=== PATIENT | female | born 1970 | race Caucasian/White ===

== ENCOUNTER 2020-08-14 18:42 | Inpatient (IN) | payer MEDICAID, OTHER ==
[~2020-08-14] VITALS: Ht 157.5 cm; Wt 122.3 kg
[2020-08-14] MEDS ORDERED: ACETAMINOPHEN 325 MG TAB PO ONE (19:15)
[2020-08-14] MEDS ORDERED: CEFEPIME 2 GM in SODIUM CHL 0.9% 50 ML IV ONE (19:45)
[2020-08-14] MEDS ORDERED: AZITHROMYCIN 500MG/ 250ML 250 ML IV ONE (19:45)
[2020-08-14] MEDS ORDERED: SODIUM CHLORIDE 0.9% 3,400 ML IV ONE (19:45)
[2020-08-14 21:19] LABS: Basophils # (auto) 0.2 10 ^3/uL (0-0.2); Basophils % (auto) 0.9 % (0.0-2.0); Eosinophils # (auto) 0 10 ^3/uL (0-0.8); Hemoglobin 14.3 g/dL (12.2-16.2); Lymphocytes # (auto) 1.3 10 ^3/uL (0.4-5.4); Lymphocytes % (auto) 7.4 % (10.0-50.0); Mean Corpuscular Hemoglobin 29.2 pg (28.0-32.0); Mean Corpuscular Hgb Conc. 34.1 g/dL (32.0-36.0); Mean Corpuscular Volume 85.8 fL (80.0-100.0); Monocytes # (auto) 1.9 10 ^3/uL (0-1.3); Monocytes % (auto) 11.2 % (0.0-12.0); Neutrophils # (auto) 13.8 10 ^3/uL (1.6-8.6); Neutrophils % (auto) 80.5 % (37.0-80.0); Nucleated Red Blood Cells % 0.1 %; Platelet Count (auto) 287 10^3/uL (140-450); Red Blood Cells 4.89 10^6/uL (4.0-5.20); Red Cell Distribution Width 13.7 % (11.8-14.3); White Blood Cell 17.1 10^3/uL (4.4-10.8)
[2020-08-14 21:33] LABS: INR 1.08 (0.9-1.15); Partial Thromboplastin Time 27.6 sec (23.0-31.2)
[2020-08-14 21:36] LABS: Albumin 2.7 g/dL (3.4-5.0); Anion Gap 9 (5-15); Blood Urea Nitrogen 10 mg/dL (7-18); Calcium 8.2 mg/dL (8.5-10.1); Carbon Dioxide 24 mmol/L (21-32); Chloride 98 mmol/L (98-107); Glucose 114 mg/dL (74-106); Magnesium 1.8 mg/dL (1.6-2.6); Potassium 3.5 mmol/L (3.5-5.1); Sodium 131 mmol/L (136-145)
[2020-08-14 21:43] LABS: Alanine Aminotransferase 90 U/L (13-56); Alkaline Phosphatase 109 U/L (45-117); Aspartate Aminotransferase 39 U/L (15-37); BUN/Creatinine Ratio 9.8; Bilirubin, Total 0.7 mg/dL (0.2-1.0); GFR African American 74 mL/min; GFR Non-African American 61 mL/min; Total Protein 7.3 g/dL (6.4-8.2)
[2020-08-15] MEDS ORDERED: MORPHINE SULFATE 10 MG/ML INJ 1ML SDV IV ONE
[2020-08-15] MEDS ORDERED: ONDANSETRON HCL 4 MG/2 ML VIAL IV ONE
[2020-08-15] MEDS ORDERED: MORPHINE SULFATE 4 MG/ML SYR/VIAL ONE (00:01)
[2020-08-15] MEDS ORDERED: VANCOMYCIN 1GM/250ML 250 ML IV ONE (02:00)
[2020-08-15] MEDS ORDERED: PROMETHAZINE HCL 25 MG/ML 1ML IV PRN (02:00)
[2020-08-15] MEDS ORDERED: SODIUM CHLORIDE 0.9% 5,000 ML IV ONE (02:00)
[2020-08-15 06:53] LABS: Basophils # (auto) 0 10 ^3/uL (0-0.2); Basophils % (auto) 0.2 % (0.0-2.0); Eosinophils # (auto) 0 10 ^3/uL (0-0.8); Hematocrit 41.3 % (36.0-46.0); Lymphocytes # (auto) 1.3 10 ^3/uL (0.4-5.4); Lymphocytes % (auto) 7.2 % (10.0-50.0); Mean Corpuscular Hemoglobin 29.5 pg (28.0-32.0); Mean Corpuscular Hgb Conc. 33.8 g/dL (32.0-36.0); Mean Corpuscular Volume 87.3 fL (80.0-100.0); Monocytes # (auto) 2.5 10 ^3/uL (0-1.3); Monocytes % (auto) 14.2 % (0.0-12.0); Neutrophils # (auto) 13.9 10 ^3/uL (1.6-8.6); Neutrophils % (auto) 78.4 % (37.0-80.0); Platelet Count (auto) 278 10^3/uL (140-450); Red Blood Cells 4.73 10^6/uL (4.0-5.20); Red Cell Distribution Width 13.8 % (11.8-14.3); White Blood Cell 17.7 10^3/uL (4.4-10.8)
[2020-08-15] MEDS: ALBUTEROL SULF HFA 90MCG INH 200DOSE IN SCH ×3 (07:20→22:00)
[2020-08-15 07:32] LABS: BUN/Creatinine Ratio 11.7; Calcium 7.6 mg/dL (8.5-10.1); Potassium 3.7 mmol/L (3.5-5.1)
[2020-08-15] MEDS ORDERED: levoFLOXacin 500MG 100 ML IV SCH (10:00)
[2020-08-15] MEDS ORDERED: IPRATROPIUM BROM 0.5 MG/2.5ML INH SOL NEB ONE (10:00)
[2020-08-15] MEDS ORDERED: ALBUTEROL SULF 2.5 MG/0.5ML(0.5%) NEB SOLN NEB ONE (10:00)
[2020-08-15] MEDS: HYDROcodone-ACET 5/325MG TAB PO PRN (10:36)
[2020-08-15] MEDS ORDERED: VANCOMYCIN PER PHARMACY 0 MG IV SCH (13:00)
[2020-08-15] MEDS ORDERED: IBUPROFEN 600 MG TAB PO PRN (14:15)
[2020-08-15] MEDS ORDERED: SODIUM CHLORIDE 0.9% 500 ML IV ONE (14:15)
[2020-08-15] MEDS: ACETAMINOPHEN 325 MG TAB PO PRN (14:29)
[2020-08-15] MEDS ORDERED: REMDESIVIR PER PHARMACY 0 ML IV SCH (14:30)
[2020-08-15] MEDS ORDERED: POTA10TA51 PO (15:34)
[2020-08-15] MEDS ORDERED: FURO20TA3 PO (15:34)
[2020-08-15] MEDS ORDERED: SULF500T2 PO (15:34)
[2020-08-15] MEDS ORDERED: LISI-646 PO (15:34)
[2020-08-15] MEDS ORDERED: ADAL40IN SC (15:34)
[2020-08-15] MEDS ORDERED: HYDR-4188 PO (15:34)
[2020-08-15] MEDS ORDERED: CHOL20007 PO (15:34)
[2020-08-15] MEDS: VANCOMYCIN 1GM/250ML 250 ML IV SCH (16:04)
[2020-08-15] MEDS: DexAMETHasone SOD PHOS 10MG/1ML VIAL INJ IV SCH (16:13)
[2020-08-15] MEDS: ASCORBIC ACID 500 MG TAB PO SCH (16:14)
[2020-08-15] MEDS: CHOLECALCIFEROL (VITD3) 2,000 UNIT CAP PO SCH (16:14)
[2020-08-15] MEDS: ZINC SULFATE 220mg CAP or TAB PO SCH (16:14)
[2020-08-15] MEDS ORDERED: REMDESIVIR 200 MG in NS 210ml LOADING DOSE ADULT IV ONE (17:00)
[2020-08-15] MEDS: PIPERACILLIN-TAZOB 3.375GM 100 ML IV SCH (18:42)
[2020-08-15] MEDS ORDERED: MORPHINE SULF INJ 2 MG/ML SYRINGE 1ML IV PRN (21:00)
[2020-08-16] MEDS: PIPERACILLIN-TAZOB 3.375GM 100 ML IV SCH ×5 (00:01→23:29)
[2020-08-16] MEDS: HYDROcodone-ACET 5/325MG TAB PO PRN (00:17)
[2020-08-16] MEDS: VANCOMYCIN 1GM/250ML 250 ML IV SCH ×2 (02:58→15:49)
[2020-08-16] MEDS: ACETAMINOPHEN 325 MG TAB PO PRN (04:32)
[2020-08-16] MEDS: ALBUTEROL SULF HFA 90MCG INH 200DOSE IN SCH ×2 (06:00→22:00)
[2020-08-16 06:26] VITALS: BP 101/60
[2020-08-16 08:00] VITALS: BP 100/54
[2020-08-16] MEDS: ZINC SULFATE 220mg CAP or TAB PO SCH (09:37)
[2020-08-16] MEDS: CHOLECALCIFEROL (VITD3) 2,000 UNIT CAP PO SCH (09:37)
[2020-08-16] MEDS: ASCORBIC ACID 500 MG TAB PO SCH (09:38)
[2020-08-16] MEDS: DexAMETHasone SOD PHOS 10MG/1ML VIAL INJ IV SCH (09:38)
[2020-08-16 10:55] LABS: Albumin 2.4 g/dL (3.4-5.0); Anion Gap 7 (5-15); Blood Urea Nitrogen 19 mg/dL (7-18); Calcium 8.1 mg/dL (8.5-10.1); Carbon Dioxide 27 mmol/L (21-32); Chloride 98 mmol/L (98-107); Glucose 100 mg/dL (74-106); Potassium 3.4 mmol/L (3.5-5.1); Sodium 132 mmol/L (136-145)
[2020-08-16 11:04] LABS: Alanine Aminotransferase 58 U/L (13-56); Alkaline Phosphatase 118 U/L (45-117); Aspartate Aminotransferase 24 U/L (15-37); BUN/Creatinine Ratio 20.9; Bilirubin, Total 0.6 mg/dL (0.2-1.0); GFR African American 84 mL/min; GFR Non-African American 70 mL/min; Lactate Dehydrogenase 267 U/L (84-246); Total Protein 7.3 g/dL (6.4-8.2)
[2020-08-16 11:06] LABS: CRP High Sensitivity > 19 mg/dL (< 0.3)
[2020-08-16] MEDS ORDERED: REMDESIVIR 100mg 100 MG in SODIUM CHL 0.9% 230 ML IV SCH (15:00)
[2020-08-16 16:00] VITALS: BP 110/70
[2020-08-17] VITALS: BP 114/66
[2020-08-17] MEDS ORDERED: VANCOMYCIN 1GM/250ML 250 ML IV SCH (01:00)
[2020-08-17] MEDS: VANCOMYCIN 1GM/250ML 250 ML IV SCH ×2 (03:11→15:30)
[2020-08-17] MEDS: HYDROcodone-ACET 5/325MG TAB PO PRN (03:15)
[2020-08-17] MEDS: PIPERACILLIN-TAZOB 3.375GM 100 ML IV SCH ×2 (06:14→12:55)
[2020-08-17 08:00] VITALS: BP 82/37
[2020-08-17 08:16] LABS: Potassium 3.9 mmol/L (3.5-5.1)
[2020-08-17 08:25] LABS: Albumin 2.5 g/dL (3.4-5.0); BUN/Creatinine Ratio 22.2; Bilirubin, Total 0.4 mg/dL (0.2-1.0); Calcium 8.6 mg/dL (8.5-10.1)
[2020-08-17] MEDS: ASCORBIC ACID 500 MG TAB PO SCH (10:12)
[2020-08-17] MEDS: CHOLECALCIFEROL (VITD3) 2,000 UNIT CAP PO SCH (10:12)
[2020-08-17] MEDS: DexAMETHasone SOD PHOS 10MG/1ML VIAL INJ IV SCH (10:12)
[2020-08-17] MEDS: ZINC SULFATE 220mg CAP or TAB PO SCH (10:12)
[2020-08-17] MEDS: ACETAMINOPHEN 325 MG TAB PO PRN (10:20)
[2020-08-17] MEDS: ALBUTEROL SULF HFA 90MCG INH 200DOSE IN SCH (10:42)
[2020-08-17] MEDS ORDERED: ENOXAPARIN SOD 40 MG/0.4 ML SYRINGE SC SCH (11:00)
[2020-08-17 16:00] VITALS: BP 115/69
[2020-08-18] MEDS ORDERED: VANCOMYCIN 1GM/250ML 250 ML IV SCH (01:00)
== END 2020-08-17 18:10 | disposition left against medical advice (07) | DRG 720 ==
LOC: ER 18:42 → EDBD 18:42 → OVERFLOW 18:43 → EAST 08-16 05:44
PROVIDERS: ADMIT Internal Medicine; ATTEND Internal Medicine
PROC: XW033E5 Introduction of Remdesivir Anti-infective into Peripheral Vein, Percutaneous Approach, New Technology Group 5 (ICD-10-PCS; principal; 2020-08-15)
DX: A41.89 Other specified sepsis (principal); U07.1 COVID-19; J96.01 Acute respiratory failure with hypoxia; J12.82 Pneumonia due to coronavirus disease 2019; J45.41 Moderate persistent asthma with (acute) exacerbation; E66.01 Morbid (severe) obesity due to excess calories; E87.1 Hypo-osmolality and hyponatremia; T63.301A Toxic effect of unspecified spider venom, accidental (unintentional), initial encounter; L02.31 Cutaneous abscess of buttock; L03.317 Cellulitis of buttock; Z68.42 Body mass index [BMI] 45.0-49.9, adult; Z79.899 Other long term (current) drug therapy; Z79.891 Long term (current) use of opiate analgesic; Z79.01 Long term (current) use of anticoagulants
CPT/HCPCS: 36415; 71045; 80048; 80053; 80202; 82728; 83605; 83615; 83735; 83880; 84484; 85025; 85379; 85610; 85730; 86141; 87040; 87077; 87186; 87205; 87426; 93005; 93970; 94640; 96365; 96367; G0378; J1100; J1956; J2405; J2543

== ENCOUNTER 2024-08-19 16:35 | Inpatient (IN) | payer MEDICAID ==
[~2024-08-19] VITALS: Ht 160 cm; Wt 104.5 kg
[~2024-08-19 16:35] MED LIST: ADAL40IN SC; CHOL20007 PO; FURO20TA3 PO; HYDR-4491 PO; LISI20TA56 PO; POTA-36 PO; SULF500T2 PO
[2024-08-19 16:54] VITALS: PULSE 101; RESP 16; O2SAT 96
[2024-08-19] MEDS ORDERED: VANCOMYCIN PER PHARMACY 0 MG IV SCH (17:00)
[2024-08-19] MEDS: LACTATED RINGER'S 1,550 ML IV ONE (17:00)
[2024-08-19] MEDS: SODIUM CHLORIDE 0.9% 1,550 ML IV ONE ×2 (17:20→19:23)
--- NOTE | 2024-08-19 17:31 | ED.PDOC ---
History of Present Illness HPI Comments 53 y/o F is BIBA for c/o left leg redness, swelling, pain, and multiple ulcer wounds, today. Patient endorses on unprovoked onset of symptoms that began, yesterday. She comments on additional single ulcer wound to 4th digit on left hand. Patient denies having any additional associated symptoms, currently, such as fever or chills. Chief Complaint: Lower Extremity Time Seen by MD: 17:00 Reviewed Notes: Nurses Notes, Ceo Notes, Medications, Allergies Allergies: Coded Allergies: Codeine (Verified Allergy, Unknown, 08/19/24) Home Meds Active Scripts Cholecalciferol (VITAMIN D3) 2,000 Unit Tab, 1 TAB PO DAILY, #90 TAB 3 Refills Prov:08/15/20 Lisinopril (Lisinopril) 20 Mg Tab, 20 MG PO DAILY for 30 Days, MG Prov:08/15/20 Hydroxychloroquine Sulfate (PLAQUENIL) 200 Mg Tab, 400 MG PO DAILY for 90 Days, #180 TAB Prov:08/15/20 Adalimumab (Humira) 40 Mg/0.4 Ml Inj, 40 MG SC UD for 28 Days, INJ Prov:08/15/20 Sulfasalazine (Azulfidine) 500 Mg Tab, 1000 MG PO BID for 90 Days, #360 TAB Prov:08/15/20 Potassium Chloride (POTASSIUM CHLORIDE CR) 10 Meq Tb, 1 TAB PO DAILY, #30 TAB 5 Refills Prov:08/15/20 Furosemide (Furosemide) 20 Mg Tab, 20 MG PO DAILY for 30 Days, MG Prov:08/15/20 Information Source: Patient, Emergency Med Personnel Mode of Arrival: EMS Severity: Moderate Timing: Hours Duration: Since onset Prehospital treatment: 12 Lead EKG, Senior Technologist Past Medical History PAST MEDICAL HISTORY: Asthma Past Medical History (Other): obesity Surgical History: Denies all surgeries ASSISTIVE TECHNOLOGY SPECIALIST History: No Pertinent ASSISTIVE TECHNOLOGY SPECIALIST History Family History Family History: Reviewed,noncontributory to illness Social History Smoker: Non-Smoker Alcohol: Denies ETOH Use Drugs: Denies Drug Use Lives In: Home Musculoskeletal: reports: others (left leg swelling, pain) Integumetry: reports: change in color (left leg redness ), wounds (left leg and left hand ulcer wounds ) All Other Systems: Reviewed and Negative (negative unless otherwise stated above or in HPI) Physical Exam General Appearance: No Apparent Distress, Obese HEENT: Normal ENT Inspection, Pharynx Normal, TMs Normal Neck: Full Range of Motion, Non-Tender, Normal, Normal Inspection Respiratory: Chest Non-Tender, Lungs Clear, No Accessory Muscle Use, No Respiratory Distress, Other (tachypneic) Cardiovascular: No Edema, No JVD, No Murmur, No Gallop, Normal Peripheral Pulses, Tachycardia Breast Exam: Deferred Gastrointestinal: No Organomegaly, Non Tender, No Pulsatile Mass, Normal Bowel Sounds, Soft Genitalia: Deferred Pelvic: Deferred Rectal: Deferred Extremities: No calf tenderness, Normal capillary refill, Normal inspection, Normal range of motion, Non-tender, No pedal edema Musculoskeletal : Apperance: Normal Neurologic: Alert, dog boarder II-XII nml as Tested, No Motor Deficits, Normal Affect, Normal Mood, No Sensory Deficits Cerebellar Function: Normal Reflexes: Normal Skin: Dry, Normal Color, Warm, Wounds (2x [id number] ulcer wounds to left lower leg and 1x 0.3cmx0.2cm to 4th digit on left hand ), Other (erythema to left leg exends to the base of thigh ) Lymphatic: No Adenopathy Was a procedure done? Was a procedure done?: No Differential Dx Considerations may include: cellulitis, dermatitis, skin contact exposure X-Ray, Labs, Meds, VS Vital Signs Date Time Temp Pulse Resp B/P (MAP) Pulse Ox O2 Delivery O2 Flow Rate FiO2 08/19/24 19:00 85 12 72/42 (52) 96 08/19/24 18:20 85 12 104/51 (68) 08/19/24 16:54 101 16 96 Room Air* 0 21 08/19/24 16:54 101.4 101 16 89/51 (64) 96 101.4 08/19/24 16:41 100.7 102 18 153/94 (113) 99 Lab Test 08/19/24 18:29 08/19/24 17:19 Range/Units Troponin I High Sensitivity Pending 7 </=34 ng/L White Blood Count 22.9 H 4.4-10.8 10^3/uL Red Blood Count 4.61 4.0-5.20 10^6/uL Hemoglobin 13.6 12.2-16.2 g/dL Hematocrit 40.9 36.0-46.0 % Mean Corpuscular Volume 88.8 80.0-100.0 fL Mean Corpuscular Hemoglobin 29.5 28.0-32.0 pg Mean Corpuscular Hemoglobin Concent 33.2 32.0-36.0 g/dL Red Cell Distribution Width 13.9 11.8-14.3 % Platelet Count 250 140-450 10^3/uL Mean Platelet Volume 7.7 6.9-10.8 fL Neutrophils (%) (Auto) 89.4 H 37.0-80.0 % Lymphocytes (%) (Auto) 5.3 L 10.0-50.0 % Monocytes (%) (Auto) 5.1 0.0-12.0 % Eosinophils (%) (Auto) 0.0 0.0-7.0 % Basophils (%) (Auto) 0.2 0.0-2.0 % Neutrophils # (Auto) 20.5 H 1.6-8.6 10 ^3/uL Lymphocytes # (Auto) 1.2 0.4-5.4 10 ^3/uL Monocytes # (Auto) 1.2 0-1.3 10 ^3/uL Eosinophils # (Auto) 0 0-0.8 10 ^3/uL Basophils # (Auto) 0 0-0.2 10 ^3/uL Nucleated Red Blood Cells 0.0 % Prothrombin Time 11.5 9.3-11.8 sec Prothrombin Time INR 1.09 0.9-1.15 Activated Partial Thromboplast Time 37.3 H 24.5-34.5 SEC D-Dimer, Quantitative 1.43 H 0.0-0.49 mg/L FEU Sodium Level 131 L 136-145 mmol/L Potassium Level 3.6 3.5-5.1 mmol/L Chloride Level 98 98-107 mmol/L Carbon Dioxide Level 24 20-31 mmol/L Anion Gap 9 5-15 Blood Urea Nitrogen 17 9-23 mg/dL Creatinine 1.25 H 0.550-1.02 mg/dL Glomerular Filtration Rate Calc 51 >90 mL/min BUN/Creatinine Ratio 13.6 10.0-20.0 Serum Glucose 124 H 74-106 mg/dL Lactic Acid Level 1.6 0.4-2.0 mmol/L Calcium Level 8.9 8.7-10.4 mg/dL Total Bilirubin 0.9 0.2-1.0 mg/dL Aspartate Amino Transferase (AST) 20 13-40 U/L Alanine Aminotransferase (ALT) 25 7-40 U/L Alkaline Phosphatase 134 H 46-116 U/L Total Protein 6.1 5.7-8.2 g/dL Albumin 3.7 3.2-4.8 g/dL Current Medications Medications (Trade) Dose Ordered Sig/Marcel Route Start Time Stop Time Status Last Admin Sodium Chloride 1,550 ml @ 1,550 mls/hr ONCE ONCE IV 08/19/24 17:00 08/19/24 17:59 DC 08/19/24 17:20 Piperacillin Sod/ Tazobactam Sod 100 ml @ 100 mls/hr ONCE ONCE IV 08/19/24 17:30 08/19/24 18:29 DC 08/19/24 18:18 X-Ray, Labs, Meds, VS Comment This 53-year-old female presents to emergency room secondary to left lower extremity swelling erythema edema subjective fevers. She was checked here with the sepsis pathway secondary to lactic acidosis, tachycardia, fever and leukocytosis. She was started on vancomycin, Zosyn IV fluids. She will be admitted Time of 1ST Reevaluation: 17:30 Reevaluation 1ST: Unchanged Patient Education/Counseling: Diagnosis, Treatment Family Education/Counseling: No Family Present Departure 1 Departure Time of Disposition: 19:16 Impression: Primary Impression: Cellulitis Additional Impressions: Thrombophlebitis Sepsis Disposition: 01 HOME / SELF CARE / HOMELESS Condition: Serious Critical Care Note Critical Care Time?: Yes (30 min-critical care time only) Stability Stability form required: No Heart Score Heart Score: Heart Score Response (Comments) Value History N/A 0 EKG N/A 0 Age N/A 0 Risk Factors N/A 0 Troponin N/A 0 Total 0 I personally scribed for PATRICIA PEREZ MD ([email or web address]) on 08/19/24 at 17:31. Electronically submitted by Reji Lazaro ([email or web address]). PATRICIA PEREZ MD Aug 19, 2024 17:31
[2024-08-19 17:39] LABS: Basophils # (auto) 0 10 ^3/uL (0-0.2); Basophils % (auto) 0.2 % (0.0-2.0); Eosinophils # (auto) 0 10 ^3/uL (0-0.8); Hematocrit 40.9 % (36.0-46.0); Hemoglobin 13.6 g/dL (12.2-16.2); Lymphocytes # (auto) 1.2 10 ^3/uL (0.4-5.4); Lymphocytes % (auto) 5.3 % (10.0-50.0); Mean Corpuscular Hemoglobin 29.5 pg (28.0-32.0); Mean Corpuscular Hgb Conc. 33.2 g/dL (32.0-36.0); Mean Corpuscular Volume 88.8 fL (80.0-100.0); Monocytes # (auto) 1.2 10 ^3/uL (0-1.3); Monocytes % (auto) 5.1 % (0.0-12.0); Neutrophils # (auto) 20.5 10 ^3/uL (1.6-8.6); Neutrophils % (auto) 89.4 % (37.0-80.0); Platelet Count (auto) 250 10^3/uL (140-450); Red Blood Cells 4.61 10^6/uL (4.0-5.20); Red Cell Distribution Width 13.9 % (11.8-14.3); White Blood Cell 22.9 10^3/uL (4.4-10.8)
[2024-08-19 17:52] LABS: Alanine Aminotransferase 25 U/L (7-40); Albumin 3.7 g/dL (3.2-4.8); Anion Gap 9 (5-15); Aspartate Aminotransferase 20 U/L (13-40); BUN/Creatinine Ratio 13.6 (10.0-20.0); Bilirubin, Total 0.9 mg/dL (0.2-1.0); Blood Urea Nitrogen 17 mg/dL (9-23); Calcium 8.9 mg/dL (8.7-10.4); Carbon Dioxide 24 mmol/L (20-31); Chloride 98 mmol/L (98-107); Potassium 3.6 mmol/L (3.5-5.1)
[2024-08-19 17:53] LABS: Alkaline Phosphatase 134 U/L (46-116); Glucose 124 mg/dL (74-106); INR 1.09 (0.9-1.15); Partial Thromboplastin Time 37.3 SEC (24.5-34.5); Prothrombin Time 11.5 sec (9.3-11.8); Sodium 131 mmol/L (136-145); Total Protein 6.1 g/dL (5.7-8.2)
[2024-08-19] MEDS ORDERED: PIPERACILLIN-TAZOB 3.375GM 100 ML IV SCH (18:00)
[2024-08-19] MEDS: PIPERACILLIN-TAZO 4.5GM 100 ML IV ONE (18:18)
[2024-08-19] MEDS: NOREPINEPHRINE 8 MG/250ML KIT 250 ML IV SCH (19:15)
--- NOTE | 2024-08-19 19:18 | DVH ---
EXAM: US BILAT LOW EXT ART DUPLEX HISTORY: edema, pain erythema to LLE COMPARISON: None TECHNIQUE: Real-time grayscale and color Doppler images of the bilateral lower extremities were obta ined with spectral waveform analysis. Findings: Arterial peak systolic velocities reported in units of centimeters per second (cm/sec): Right side: Common femoral - 91.2 Profunda - 108.6 Proximal SFA - 116.3 Mid SFA - 114.5 Distal SFA - 109.1 Popliteal - 102.0 Posterior tibial - 107.0 Dorsalis pedis - 109.0 Diffuse multiphasic waveforms. Left side: Common femoral - 116..5 Profunda - 42.0 Proximal SFA - 151.6 Mid SFA - 109.6 Distal SFA - 128.3 Popliteal - 132.4 Posterior tibial - 114.1 Dorsalis pedis - 87.5 Diffuse multiphasic waveforms. IMPRESSION: No evidence of hemodynamically significant stenosis throughout the bilateral lower extremity arterial systems.
[2024-08-19 19:35] VITALS: PULSE 98; RESP 19; O2SAT 98
--- NOTE | 2024-08-19 19:43 | DVHHP2 ---
History of Present Illness Reason for Visit: Sepsis, unspecified organism History of Present Illness The patient is a 53-year-old female morbidly obese with past medical history of asthma presented to [facility] ED for evaluation of left leg swelling. Patient reports symptoms progressively get worse with redness, pain, multiple ulcer wounds, getting worse today that prompted this visit. Patient was seen and evaluated in the ED, laboratory data shows elevated WBC 22.9, platelets 250, sodium 131, potassium 3.6, BUN 17, creatinine 1.25, GFR 51, glucose 124, troponin 7, D-dimer 1.43, blood pressure 72/42 trending up to 123/80, heart rate 102 trending down to 85, temperature 101.4 F trending down to 99.3 F., O2 saturation 96% on oxygen duplex scan lower extremity artery showed no evidence of hemodynamically significant stenosis throughout the bilateral lower extremity arterial systems. Patient was started on IV antibiotic regimen Zosyn, IV Lev ophed on hold, please see medication orders section in the computer. On my assessment, patient denied chest pain, no headache, no dizziness, no abdominal pain, no diarrhea, no nausea, no vomiting, no fever, no chills. Patient was admitted for further evaluation and medical management. Past Medical History Asthma, Morbid obesity Past Surgical History Denies all surgeries Family History Reviewed, noncontributory to the management of this case. Past Social History The patient lives at home, denies smoking, alcohol or illicit drugs abuse. Review of Systems Constitutional: Yes: Fever, Weakness; No: Chills, Sweats, Malaise, Other Eyes: No: Pain, Vision change, Conjunctivae inflammation, Eyelid inflammation, Other, Redness ENT: No: Ear pain, Ear discharge, Nose pain, Nose discharge, Nose congestion, Mouth pain, Mouth swelling, Throat pain, Throat swelling, Other Respiratory: No: Cough, Dry, Shortness of breath, SOB with excertion, Wheezing, Hemoptysis, Pleuritic Pain, Sputum, Wheezing, Other Cardiovascular: No: Chest Pain, Palpitations, Orthopnea, Paroxysmal Noc. Dyspnea, Edema, Lt Headedness, Other Gastrointestinal: No: Nausea, Vomiting, Abdominal Pain, Diarrhea, Constipation, Melena, Hematochezia, Other Genitourinary: No Dysuria, No Frequency, No Incontinence, No Hematuria, No Retention, No Other Musculoskeletal: other (Left leg swelling/pain); No: neck pain, shoulder pain, arm pain, back pain, hand pain, leg pain, foot pain Skin: Other (left leg and left hand ulcer wounds, left leg redness. ); No: Rash, Lesions, Jaundice, Bruising Neurological: No: Weakness, Numbness, Incoordination, Change in speech, Confusion, Seizures, Other Allergies: Coded Allergies: Vancomycin (Verified Allergy, Severe, Swelling, difficulty breathing, 08/19/24) PAtients eye swelled shut, and patient stated sifficulty breathing. Codeine (Verified Allergy, Unknown, 08/19/24) Medications Current Medications Medications Dose Ordered Sig/Marcel Route Start Time Stop Time Status Last Admin Dose Admin Vancomycin HCl 0 ml @ 0 mls/hr UD IV 08/19/24 17:00 Vancomycin HCl 250 ml @ 250 mls/hr Q12H IV 08/19/24 18:00 Norepinephrine Bitartrate 250 ml @ 3.75 mls/hr Q24H IV 08/19/24 19:15 Piperacillin Sod/ Tazobactam Sod 100 ml @ 33.3 mls/hr Q8H IV 08/20/24 02:00 Exam Vital Signs Vital Signs Date Time Temp Pulse Resp B/P (MAP) Pulse Ox O2 Delivery O2 Flow Rate FiO2 08/19/24 19:35 98 19 98 Room Air* 0 21 08/19/24 19:00 72/42 (52) 08/19/24 16:54 101.4 101.4 General Appearance: Alert, Oriented X3, Cooperative, No acute distress HEENT: Atraumatic, PERRLA, EOMI, Mucous membr. moist/pink Respiratory: Clear to auscultation, Normal air movement Cardiovascular: Regular rate, Normal S1, Normal S2, No murmurs Abdominal: Normal bowel sounds, Soft, No tenderness, No hepatospenomegaly, No masses Extremities: No clubbing, No cyanosis, Normal pulses, Other (Left leg swelling/pain) Skin: No rashes Neuro: Normal speech, Normal tone, Sensation intact, Cranial nerves 3-12 NL, Reflexes 2+, Other (Generalized weakness) Psych/Mental Status: Mental status NL, Mood NL Labs/Xrays Labs Test 08/19/24 18:29 08/19/24 17:19 Range/Units Troponin I High Sensitivity 5 </=34 ng/L White Blood Count 22.9 H 4.4-10.8 10^3/uL Red Blood Count 4.61 4.0-5.20 10^6/uL Hemoglobin 13.6 12.2-16.2 g/dL Hematocrit 40.9 36.0-46.0 % Mean Corpuscular Volume 88.8 80.0-100.0 fL Mean Corpuscular Hemoglobin 29.5 28.0-32.0 pg Mean Corpuscular Hemoglobin Concent 33.2 32.0-36.0 g/dL Red Cell Distribution Width 13.9 11.8-14.3 % Platelet Count 250 140-450 10^3/uL Mean Platelet Volume 7.7 6.9-10.8 fL Neutrophils (%) (Auto) 89.4 H 37.0-80.0 % Lymphocytes (%) (Auto) 5.3 L 10.0-50.0 % Monocytes (%) (Auto) 5.1 0.0-12.0 % Eosinophils (%) (Auto) 0.0 0.0-7.0 % Basophils (%) (Auto) 0.2 0.0-2.0 % Neutrophils # (Auto) 20.5 H 1.6-8.6 10 ^3/uL Lymphocytes # (Auto) 1.2 0.4-5.4 10 ^3/uL Monocytes # (Auto) 1.2 0-1.3 10 ^3/uL Eosinophils # (Auto) 0 0-0.8 10 ^3/uL Basophils # (Auto) 0 0-0.2 10 ^3/uL Nucleated Red Blood Cells 0.0 % Prothrombin Time 11.5 9.3-11.8 sec Prothrombin Time INR 1.09 0.9-1.15 Activated Partial Thromboplast Time 37.3 H 24.5-34.5 SEC D-Dimer, Quantitative 1.43 H 0.0-0.49 mg/L FEU Sodium Level 131 L 136-145 mmol/L Potassium Level 3.6 3.5-5.1 mmol/L Chloride Level 98 98-107 mmol/L Carbon Dioxide Level 24 20-31 mmol/L Anion Gap 9 5-15 Blood Urea Nitrogen 17 9-23 mg/dL Creatinine 1.25 H 0.550-1.02 mg/dL Glomerular Filtration Rate Calc 51 >90 mL/min BUN/Creatinine Ratio 13.6 10.0-20.0 Serum Glucose 124 H 74-106 mg/dL Lactic Acid Level 1.6 0.4-2.0 mmol/L Calcium Level 8.9 8.7-10.4 mg/dL Total Bilirubin 0.9 0.2-1.0 mg/dL Aspartate Amino Transferase (AST) 20 13-40 U/L Alanine Aminotransferase (ALT) 25 7-40 U/L Alkaline Phosphatase 134 H 46-116 U/L Total Protein 6.1 5.7-8.2 g/dL Albumin 3.7 3.2-4.8 g/dL PATIENT: WILLIAM URIBE ACCT: [id number] UNIT: [id number] : 1970 LOC: ER ROOM / BED: / AGE / SEX: 53 / F ADM STATUS: REG ER SERVICE [id number] ORDERING PHYSICIAN: PATRICIA PEREZ MD PROCEDURE(s): BLEAD - BiLat Low Ext Art Duplex REASON: edema, pain erythema to LLE ORDER NUMBER(s): [id number], ACCESSION NUMBER(s): [id number] EXAM: US BILAT LOW EXT ART DUPLEX HISTORY: edema, pain erythema to LLE COMPARISON: None TECHNIQUE: Real-time grayscale and color Doppler images of the bilateral lower extremities were obtained with spectral waveform analysis. Findings: Arterial peak systolic velocities reported in units of centimeters per second (cm/sec): Right side: Common femoral - 91.2 Profunda - 108.6 Proximal SFA - 116.3 Mid SFA - 114.5 Distal SFA - 109.1 Popliteal - 102.0 Posterior tibial - 107.0 Dorsalis pedis - 109.0 Diffuse multiphasic waveforms. Left side: Common femoral - 116..5 Profunda - 42.0 Proximal SFA - 151.6 Mid SFA - 109.6 Distal SFA - 128.3 Popliteal - 132.4 Posterior tibial - 114.1 Dorsalis pedis - 87.5 Diffuse multiphasic waveforms. IMPRESSION: No evidence of hemodynamically significant stenosis throughout the bilateral lower extremity arterial systems. Assessment/Plan Assessment/Plan Cellulitis of left leg Generalized weakness Thrombophlebitis Sepsis, unspecified organism Plan 1. Admit to intensive care unit 2. Breathing treatment 3. Pain control management 4. IV antibiotic management 5. Management of fluids and electrolytes 6. Consultation for hospitalist/wound care 7. Diagnostic test extremity arterial study 8. DVT prophylaxis-on heparin 9. Repeat labs CBC, CMP in a.m. 10. Home medication reviewed and reconciled 11. Continue with current medical management 12. Treatment plan discussed with patient and RN. Patient verbalized understanding. Plan discussed with: Patient, Other (RN) Problem List: (1) Cellulitis of left leg (2) Generalized weakness (3) Thrombophlebitis (4) Sepsis, unspecified organism Date of Service: Aug 19, 2024 Billing Provider: GIANFRANCO SEN DNP Common Visit Codes: 58024-[id number] INP/OBS CARE (HIGH) GIANFRANCO SEN DNP Aug 19, 2024 19:43
[2024-08-19] MEDS ORDERED: MORPHINE SULFATE INJ 2 MG/ml SYRG IV PRN (19:45)
[2024-08-19] MEDS ORDERED: NITROGLYCERIN 0.4 MG SL TAB SL PRN (19:45)
[2024-08-19] MEDS ORDERED: DOCUSATE SOD 100 MG CAP PO PRN (19:45)
[2024-08-19] MEDS: VANCOMYCIN 1GM/250ML KIT 250 ML IV SCH (19:58)
[2024-08-19] MEDS: SODIUM CHLORIDE 0.9% 1,000 ML IV SCH (20:33)
[2024-08-19] MEDS: diphenhdrAMINE HCL 50 MG/1 ML VL ONE (20:45)
[2024-08-19] MEDS: diphenhdrAMINE HCL 50 MG/1 ML VL IV PRN (21:05)
[2024-08-19 21:08] LABS: Urine Bacteria None Seen /hpf (None Seen)
[2024-08-19 21:31] LABS: Urine Blood TRACE /uL (Negative); Urine Clarity Clear (Clear); Urine Color Yellow (Yellow); Urine Protein, UAD TRACE (Negative); Urine Squamous Epithelial Cell FEW /hpf (<5); Urine Urobilinogen Normal (Negative); Urine WBC 2 /hpf (0 - 5)
[2024-08-19] MEDS: ACETAMINOPHEN 325 MG TAB PO PRN (21:50)
[2024-08-19] MEDS ORDERED: PIPERACILLIN-TAZO 4.5GM 100 ML IV SCH (22:00)
[2024-08-19] MEDS ORDERED: VANCOMYCIN 1GM/250ML KIT 200 ML IV SCH (22:00)
[2024-08-19] MEDS: HEPARIN SODIUM (PORCINE) 5000 UNITS/ML 1ML VIAL SC SCH (22:14)
[2024-08-19] MEDS: KETOROLAC TROMETH 30 MG/ML 1ML VIAL IV ONE (22:24)
[2024-08-19] MEDS: HYDROcodone-ACET 5/325MG TAB PO PRN (22:58)
[2024-08-20] MEDS: PIPERACILLIN-TAZOB 3.375GM 100 ML IV SCH (01:34)
[2024-08-20] MEDS: ONDANSETRON HCL 4 MG/2 ML VIAL IV PRN (02:08)
[2024-08-20] MEDS: HYDROmorphone HCL 2 MG/ML VL/or syr IV PRN (02:08)
[2024-08-20] MEDS: methylPREDNISolone SOD SUCC 125 MG/2 ML VL IV ONE (02:09)
[2024-08-20] MEDS: methylPREDNISolone SOD SUCC 40 MG/ML VL IV SCH (06:06)
[2024-08-20 06:37] LABS: Basophils # (auto) 0 10 ^3/uL (0-0.2); Basophils % (auto) 0.1 % (0.0-2.0); Eosinophils # (auto) 0 10 ^3/uL (0-0.8); Eosinophils % (auto) 0.1 % (0.0-7.0); Hematocrit 36.6 % (36.0-46.0); Hemoglobin 12.2 g/dL (12.2-16.2); Lymphocytes # (auto) 0.6 10 ^3/uL (0.4-5.4); Lymphocytes % (auto) 3.7 % (10.0-50.0); Mean Corpuscular Hemoglobin 29.9 pg (28.0-32.0); Mean Corpuscular Hgb Conc. 33.3 g/dL (32.0-36.0); Mean Corpuscular Volume 89.7 fL (80.0-100.0); Monocytes # (auto) 0.7 10 ^3/uL (0-1.3); Neutrophils # (auto) 15.8 10 ^3/uL (1.6-8.6); Neutrophils % (auto) 92.1 % (37.0-80.0); Nucleated Red Blood Cells % 0.2 %; Platelet Count (auto) 228 10^3/uL (140-450); Red Blood Cells 4.08 10^6/uL (4.0-5.20); Red Cell Distribution Width 14.4 % (11.8-14.3); White Blood Cell 17.2 10^3/uL (4.4-10.8)
[2024-08-20 06:40] LABS: Alanine Aminotransferase 21 U/L (7-40); Albumin 3.6 g/dL (3.2-4.8); Anion Gap 9 (5-15); Aspartate Aminotransferase 18 U/L (13-40); BUN/Creatinine Ratio 14.9 (10.0-20.0); Bilirubin, Total 0.6 mg/dL (0.2-1.0); Blood Urea Nitrogen 18 mg/dL (9-23); Calcium 8.9 mg/dL (8.7-10.4); Carbon Dioxide 23 mmol/L (20-31); Chloride 104 mmol/L (98-107); Potassium 3.9 mmol/L (3.5-5.1); Sodium 136 mmol/L (136-145); Total Protein 6.5 g/dL (5.7-8.2)
[2024-08-20 06:50] LABS: Alkaline Phosphatase 137 U/L (46-116); Glucose 157 mg/dL (74-106)
[2024-08-20] MEDS: IBUPROFEN 600 MG TAB PO PRN (07:09)
[2024-08-20 07:46] VITALS: PULSE 73; RESP 17; O2SAT 97
[2024-08-20] MEDS: FAMOTIDINE (10MG/ML) 2ML VL IV SCH (10:18)
--- NOTE | 2024-08-20 13:19 | DVHPN2 ---
Reviewed: Care Plan, H&P, Labs, Medications, Previous Orders, Radiology Changes from previous H/P or p: No Changes Eyes: No Pain, No Vision change, No Conjunctivae inflammation, No Eyelid inflammation, No Other, No Redness ENT: No Ear pain, No Ear discharge, No Nose pain, No Nose discharge, No Nose congestion, No Mouth pain, No Mouth swelling, No Throat pain, No Throat swelling, No Other Cardiovascular: No Chest Pain, No Palpitations, No Orthopnea, No Paroxysmal Noc. Dyspnea, No Edema, No Lt Headedness, No Other Respiratory: No Cough, No Dry, No Shortness of breath, No SOB with excertion, No Wheezing, No Hemoptysis, No Pleuritic Pain, No Sputum, No Other Gastrointestinal: No Nausea, No Vomiting, No Abdominal Pain, No Diarrhea, No Constipation, No Melena, No Hematochezia, No Other Genitourinary: No Dysuria, No Frequency, No Incontinence, No Hematuria, No Retention, No Other Musculoskeletal: other (Left leg swelling/pain); No neck pain, No shoulder pain, No arm pain, No back pain, No hand pain, No leg pain, No foot pain Skin: No Rash, No Lesions, No Jaundice, No Bruising; Other (left leg and left hand ulcer wounds, left leg redness. ) Objective Vitals Vital Signs Date Time Temp Pulse Resp B/P (MAP) Pulse Ox O2 Delivery O2 Flow Rate FiO2 08/20/24 12:12 67 08/20/24 11:00 17 118/77 (91) 94 08/20/24 09:00 97.7 97.7 08/20/24 07:46 Room Air* 0 21 Intake/Output Intake and Output 08/20/24 06:59 Intake Total 4480.0 ml Output Total 400 ml Balance 4080.0 ml Intake IV Total 4480.0 ml Output Urine Total 400 ml Medications Current Medications Medications Dose Ordered Sig/Marcel Route Start Time Stop Time Status Last Admin Dose Admin Vancomycin HCl 0 ml @ 0 mls/hr UD IV 08/19/24 17:00 Hold Vancomycin HCl 250 ml @ 250 mls/hr Q12H IV 08/19/24 18:00 Hold 08/19/24 19:58 250 MLS/HR Norepinephrine Bitartrate 250 ml @ 3.75 mls/hr Q24H IV 08/19/24 19:15 Piperacillin Sod/ Tazobactam Sod 100 ml @ 33.3 mls/hr Q8H IV 08/20/24 02:00 08/20/24 10:18 33.3 MLS/HR Sodium Chloride 1,000 ml @ 60 mls/hr [id number] IV 08/19/24 19:45 08/19/24 20:33 60 MLS/HR Ondansetron HCl 4 mg Q4HP PRN IV 08/19/24 19:45 08/20/24 02:08 4 MG Docusate Sodium 100 mg BIDPRN PRN PO 08/19/24 19:45 Acetaminophen 650 mg Q6HP PRN PO 08/19/24 19:45 08/19/24 21:50 650 MG Nitroglycerin 0.4 mg Q5MINP PRN SL 08/19/24 19:45 Morphine Sulfate 2 mg Q30M PRN IV 08/19/24 19:45 Heparin Sodium (Porcine) 5,000 units Q12HR SC 08/19/24 22:00 08/20/24 10:19 5,000 UNITS Diphenhydramine HCl 25 mg Q4HP PRN IV 08/19/24 20:45 08/19/24 21:05 25 MG Hydromorphone HCl 0.5 mg Q4HPRN PRN IV 08/20/24 01:45 08/20/24 02:08 0.5 MG Ibuprofen 600 mg Q6HP PRN PO 08/20/24 01:45 08/20/24 07:09 600 MG Famotidine 20 mg Q12HR IV 08/20/24 10:00 08/20/24 10:18 20 MG Methylprednisolone Sodium Succinate 40 mg Q8HR IV 08/20/24 06:00 08/20/24 06:06 40 MG Laboratory Results Laboratory Tests 08/20/24 05:32 Chemistry Test 08/19/24 17:19 08/20/24 05:32 Albumin 3.7 g/dL (3.2-4.8) 3.6 g/dL (3.2-4.8) Calcium Level 8.9 mg/dL (8.7-10.4) 8.9 mg/dL (8.7-10.4) Total Protein 6.1 g/dL (5.7-8.2) 6.5 g/dL (5.7-8.2) Coagulation Test 08/19/24 17:19 Prothrombin Time 11.5 sec (9.3-11.8) Prothrombin Time INR 1.09 (0.9-1.15) Activated Partial Thromboplast Time 37.3 SEC (24.5-34.5) H D-Dimer, Quantitative 1.43 mg/L FEU (0.0-0.49) H LFT Test 08/19/24 17:19 08/20/24 05:32 Alanine Aminotransferase (ALT) 25 U/L (7-40) 21 U/L (7-40) Alkaline Phosphatase 134 U/L (46-116) H 137 U/L (46-116) H Aspartate Amino Transferase (AST) 20 U/L (13-40) 18 U/L (13-40) Total Bilirubin 0.9 mg/dL (0.2-1.0) 0.6 mg/dL (0.2-1.0) Urinalysis Test 08/19/24 21:01 Urine Color Yellow (Yellow) Urine Clarity Clear (Clear) Urine pH 6.0 (5.0-9.0) Urine Specific [place] 1.020 (1.001-1.035) Urine Protein Trace (Negative) H Urine Ketones Negative (Negative) Urine Blood Trace /uL (Negative) H Urine Nitrite Negative (Negative) Urine Bilirubin Negative (Negative) Urine Urobilinogen Normal mg/dL (Negative) Urine Leukocyte Esterase Negative /uL (Negative) Urine RBC 1 /hpf (0 - 4) Urine WBC 2 /hpf (0 - 5) Urine Squamous Epithelial Cells Few /hpf (<5) Urine Bacteria None seen /hpf (None Seen) Urine Glucose Normal mg/dL (Normal) Labs and/or images reviewed: Labs reviewed by me, Image(s) reviewed by me Assessment/Plan Assessment/Plan Sepsis secondary to severe cellulitis left lower extremity: Blood cultures Cellulitis left lower extremity: Zosyn clindamycin Peripheral arterial disease ruled out Acute hypotension secondary to sepsis: Levophed Venous ultrasound rule out DVT pending History of asthma Morbid obesity BMI of 40.8 Elevated D-dimer 1.43 Time spent 45 minutes Patient is full code Advanced care planning time 20 minutes Plan discussed with: Patient My Orders Orders - ESHA GRAMAJO MD Procedure Category Date Status Time Bilat Lower Dvt US 08/20/24 Logged 13:14 Date of Service: Aug 20, 2024 Billing Provider: ESHA GRAMAJO MD Common Visit Codes: [id number] INP/OBS CARE(HIGH) Secondary Visit Codes: [id number]-[id number] CARE PLAN 30 MINUTES ESHA GRAMAJO MD Aug 20, 2024 13:19
--- NOTE | 2024-08-20 13:58 | DVH ---
Bilateral lower extremity venous duplex Clinical History: r/o dvt Comparison: VENOUS DVT BILAT on DOS: 08/15/20 Technique: Duplex Doppler evaluation of the deep venous systems of both lower extremities from the common femora l veins to the popliteal veins including color Doppler and spectral/pulsed waveform analysis was perf ormed. Findings: RIGHT SIDE: The common femoral vein demonstrates appropriate compressibility and waveform variability. There is i ncreased echogenicity within the vessel which can be seen with Rouleaux flow. There is compressibility/patency of the great saphenous vein at the proximal thigh. The femoral vein demonstrates appropriate compressibility and waveform variability. The deep femoral vein demonstrates appropriate compressibility and waveform variability. The popliteal vein demonstrates appropriate compressibility and waveform variability. There is normal compressibility at the tibioperoneal trunk. LEFT SIDE: The common femoral vein demonstrates appropriate compressibility and waveform variability. There is compressibility/patency of the great saphenous vein at the proximal thigh. The femoral vein demonstrates appropriate compressibility and waveform variability. The deep femoral vein demonstrates appropriate compressibility and waveform variability. The popliteal vein demonstrates appropriate compressibility and waveform variability. There is normal compressibility at the tibioperoneal trunk. Impression: 1. No right or left femoropopliteal venous thrombosis. 2. Suggestion of rouleaux flow in the right common femoral vein. This can be a normal finding or asso ciated with a number of underlying conditions. The vessel maintains normal compressibility.
[2024-08-20] MEDS: CLINDAMYCIN 900MG IV 50 ML IV SCH (14:02)
[2024-08-20 19:50] VITALS: RESP 17; O2SAT 98
[2024-08-21 08:10] VITALS: PULSE 78; RESP 16; O2SAT 98
--- NOTE | 2024-08-21 08:13 | DVHPN2 ---
Reviewed: Care Plan, H&P, Labs, Medications, Previous Orders, Radiology Changes from previous H/P or p: No Changes Eyes: No Pain, No Vision change, No Conjunctivae inflammation, No Eyelid inflammation, No Other, No Redness ENT: No Ear pain, No Ear discharge, No Nose pain, No Nose discharge, No Nose congestion, No Mouth pain, No Mouth swelling, No Throat pain, No Throat swelling, No Other Cardiovascular: No Chest Pain, No Palpitations, No Orthopnea, No Paroxysmal Noc. Dyspnea, No Edema, No Lt Headedness, No Other Respiratory: No Cough, No Dry, No Shortness of breath, No SOB with excertion, No Wheezing, No Hemoptysis, No Pleuritic Pain, No Sputum, No Other Gastrointestinal: No Nausea, No Vomiting, No Abdominal Pain, No Diarrhea, No Constipation, No Melena, No Hematochezia, No Other Genitourinary: No Dysuria, No Frequency, No Incontinence, No Hematuria, No Retention, No Other Musculoskeletal: other (Left leg swelling/pain); No neck pain, No shoulder pain, No arm pain, No back pain, No hand pain, No leg pain, No foot pain Skin: No Rash, No Lesions, No Jaundice, No Bruising; Other (left leg and left hand ulcer wounds, left leg redness. ) Objective Vitals Vital Signs Date Time Temp Pulse Resp B/P (MAP) Pulse Ox O2 Delivery O2 Flow Rate FiO2 08/21/24 08:07 77 08/21/24 05:45 21 105/62 (76) 94 08/20/24 19:50 Room Air* 0 21 08/20/24 09:00 97.7 97.7 Medications Current Medications Medications Dose Ordered Sig/Marcel Route Start Time Stop Time Status Last Admin Dose Admin Vancomycin HCl 0 ml @ 0 mls/hr UD IV 08/19/24 17:00 Hold Vancomycin HCl 250 ml @ 250 mls/hr Q12H IV 08/19/24 18:00 Hold 08/19/24 19:58 250 MLS/HR Norepinephrine Bitartrate 250 ml @ 3.75 mls/hr Q24H IV 08/19/24 19:15 Piperacillin Sod/ Tazobactam Sod 100 ml @ 33.3 mls/hr Q8H IV 08/20/24 02:00 08/21/24 02:30 33.3 MLS/HR Sodium Chloride 1,000 ml @ 60 mls/hr [id number] IV 08/19/24 19:45 08/21/24 05:16 60 MLS/HR Ondansetron HCl 4 mg Q4HP PRN IV 08/19/24 19:45 08/20/24 02:08 4 MG Docusate Sodium 100 mg BIDPRN PRN PO 08/19/24 19:45 Acetaminophen 650 mg Q6HP PRN PO 08/19/24 19:45 08/19/24 21:50 650 MG Nitroglycerin 0.4 mg Q5MINP PRN SL 08/19/24 19:45 Morphine Sulfate 2 mg Q30M PRN IV 08/19/24 19:45 Heparin Sodium (Porcine) 5,000 units Q12HR SC 08/19/24 22:00 08/20/24 22:23 5,000 UNITS Diphenhydramine HCl 25 mg Q4HP PRN IV 08/19/24 20:45 08/19/24 21:05 25 MG Hydromorphone HCl 0.5 mg Q4HPRN PRN IV 08/20/24 01:45 08/20/24 02:08 0.5 MG Ibuprofen 600 mg Q6HP PRN PO 08/20/24 01:45 08/20/24 07:09 600 MG Famotidine 20 mg Q12HR IV 08/20/24 10:00 08/20/24 22:21 20 MG Methylprednisolone Sodium Succinate 40 mg Q8HR IV 08/20/24 06:00 08/21/24 06:00 40 MG Clindamycin Phosphate 50 ml @ 50 mls/hr Q8HR IV 08/20/24 14:00 08/21/24 06:07 50 MLS/HR Laboratory Results Laboratory Tests 08/20/24 05:32 Urinalysis Test 08/19/24 21:01 Urine Color Yellow (Yellow) Urine Clarity Clear (Clear) Urine pH 6.0 (5.0-9.0) Urine Specific [place] 1.020 (1.001-1.035) Urine Protein Trace (Negative) H Urine Ketones Negative (Negative) Urine Blood Trace /uL (Negative) H Urine Nitrite Negative (Negative) Urine Bilirubin Negative (Negative) Urine Urobilinogen Normal mg/dL (Negative) Urine Leukocyte Esterase Negative /uL (Negative) Urine RBC 1 /hpf (0 - 4) Urine WBC 2 /hpf (0 - 5) Urine Squamous Epithelial Cells Few /hpf (<5) Urine Bacteria None seen /hpf (None Seen) Urine Glucose Normal mg/dL (Normal) Microbiology Microbiology Date/Time Source Procedure Growth Status 08/19/24 17:19 Blood Blood Culture - Preliminary NO GROWTH AFTER 24 HOURS OF INCUBATION. Resulted Labs and/or images reviewed: Labs reviewed by me, Image(s) reviewed by me Assessment/Plan Assessment/Plan Sepsis secondary to severe cellulitis left lower extremity: Blood cultures Cellulitis left lower extremity: Zosyn clindamycin patient is allergic to vancomycin Peripheral arterial disease ruled out Acute hypotension secondary to sepsis: Levophed DVT ruled out Blood cultures neg History of asthma Morbid obesity BMI of 40.8 Elevated D-dimer 1.43 Time spent 45 minutes Patient is full code Plan discussed with: Patient My Orders Orders - ESHA GRAMAJO MD Procedure Category Date Status Time Bilat Lower Dvt US 08/20/24 Resulted 13:14 Clindamycin 900mg Iv PHA 08/20/24 In Process (Cleocin Iv) 14:00 Date of Service: Aug 21, 2024 Billing Provider: ESHA GRAMAJO MD Common Visit Codes: [id number] INP/OBS CARE(HIGH) ESHA GRAMAJO MD Aug 21, 2024 08:13
[2024-08-21 17:14] VITALS: PULSE 72; RESP 19; O2SAT 95
[2024-08-21 17:15] VITALS: BP 129/72; PULSE 72; RESP 19; TEMP 97.9; O2SAT 95
[2024-08-21] MEDS ORDERED: ALBU108A5 (17:36)
[2024-08-21] MEDS ORDERED: ACET-6 (17:36)
[2024-08-21 21:00] VITALS: BP 109/53; PULSE 78; RESP 18; TEMP 97.7; O2SAT 95
[2024-08-22] VITALS (8 sets, daily range): BP systolic 108–150; BP diastolic 44–93; PULSE 63–75; RESP 17–20; TEMP 97.2–98.1; O2SAT 0–100
[2024-08-22] MEDS ORDERED: HYDR-4902 PO (11:37)
[2024-08-22] MEDS ORDERED: CLIN1CAP70 PO (11:37)
--- NOTE | 2024-08-22 11:49 | DVHDS2 ---
Discharge Summary Date of Admission Aug 19, 2024 at 19:37 Date of Discharge: Aug 22, 2024 Admitting Diagnosis Infection left lower leg Wounds: Cellulitis left lower extremity Labs/Diagnostic Data: Laboratory Results Test 08/20/24 05:32 08/19/24 21:01 08/19/24 20:08 08/19/24 17:19 White Blood Count 17.2 10^3/uL (4.4-10.8) Red Blood Count 4.08 10^6/uL (4.0-5.20) Hemoglobin 12.2 g/dL (12.2-16.2) Hematocrit 36.6 % (36.0-46.0) Mean Corpuscular Volume 89.7 fL (80.0-100.0) Mean Corpuscular Hemoglobin 29.9 pg (28.0-32.0) Mean Corpuscular Hemoglobin Concent 33.3 g/dL (32.0-36.0) Red Cell Distribution Width 14.4 % (11.8-14.3) Platelet Count 228 10^3/uL (140-450) Mean Platelet Volume 8.4 fL (6.9-10.8) Neutrophils (%) (Auto) 92.1 % (37.0-80.0) Lymphocytes (%) (Auto) 3.7 % (10.0-50.0) Monocytes (%) (Auto) 4.0 % (0.0-12.0) Eosinophils (%) (Auto) 0.1 % (0.0-7.0) Basophils (%) (Auto) 0.1 % (0.0-2.0) Neutrophils # (Auto) 15.8 10 ^3/uL (1.6-8.6) Lymphocytes # (Auto) 0.6 10 ^3/uL (0.4-5.4) Monocytes # (Auto) 0.7 10 ^3/uL (0-1.3) Eosinophils # (Auto) 0 10 ^3/uL (0-0.8) Basophils # (Auto) 0 10 ^3/uL (0-0.2) Nucleated Red Blood Cells 0.2 % Sodium Level 136 mmol/L (136-145) Potassium Level 3.9 mmol/L (3.5-5.1) Chloride Level 104 mmol/L (98-107) Carbon Dioxide Level 23 mmol/L (20-31) Anion Gap 9 (5-15) Blood Urea Nitrogen 18 mg/dL (9-23) Creatinine 1.21 mg/dL (0.550-1.02) Glomerular Filtration Rate Calc 53 mL/min (>90) BUN/Creatinine Ratio 14.9 (10.0-20.0) Serum Glucose 157 mg/dL (74-106) Calcium Level 8.9 mg/dL (8.7-10.4) Total Bilirubin 0.6 mg/dL (0.2-1.0) Aspartate Amino Transferase (AST) 18 U/L (13-40) Alanine Aminotransferase (ALT) 21 U/L (7-40) Alkaline Phosphatase 137 U/L (46-116) Total Protein 6.5 g/dL (5.7-8.2) Albumin 3.6 g/dL (3.2-4.8) Urine Color Yellow (Yellow) Urine Clarity Clear (Clear) Urine pH 6.0 (5.0-9.0) Urine Specific [place] 1.020 (1.001-1.035) Urine Protein Trace (Negative) Urine Ketones Negative (Negative) Urine Blood Trace /uL (Negative) Urine Nitrite Negative (Negative) Urine Bilirubin Negative (Negative) Urine Urobilinogen Normal mg/dL (Negative) Urine Leukocyte Esterase Negative /uL (Negative) Urine RBC 1 /hpf (0 - 4) Urine WBC 2 /hpf (0 - 5) Urine Squamous Epithelial Cells Few /hpf (<5) Urine Bacteria None seen /hpf (None Seen) Urine Glucose Normal mg/dL (Normal) Lactic Acid Level 1.6 mmol/L (0.4-2.0) Troponin I High Sensitivity 6 ng/L (</=34) Prothrombin Time 11.5 sec (9.3-11.8) Prothrombin Time INR 1.09 (0.9-1.15) Activated Partial Thromboplast Time 37.3 SEC (24.5-34.5) D-Dimer, Quantitative 1.43 mg/L FEU (0.0-0.49) Other Laboratory Tests 08/20/24 05:32 Brief Hx & Hospital Course: Two 3-year-old female admitted for sepsis secondary to cellulitis left lower extremity treated with the Zosyn and clindamycin peripheral arterial disease ruled out. DVT ruled out blood cultures negative elevated D-dimer 1.43. V/Q scan pending patient requesting to be discharged home. Discharged on clindamycin and [place]. She does not want to go to detention facility for IV antibiotics and she lives too far away in [place] for arranging home health Consults/Reason for consult None Operations or Procedures Venous ultrasound Arterial ultrasound Condition at Discharge: Fair Final Diagnosis/Problems List Sepsis secondary to severe cellulitis left lower extremity: Blood cultures Cellulitis left lower extremity: Zosyn clindamycin patient is allergic to vancomycin Peripheral arterial disease ruled out Acute hypotension secondary to sepsis: Levophed DVT ruled out Blood cultures neg History of asthma Morbid obesity BMI of 40.8 Elevated D-dimer 1.43 Discharge Disposition: Home Discharge Instruct/Medications Diet: Cardiac 2g Na,low cholest Activity: Light activity Follow Up/Referral: Follow up With your primary Dr in one week Resume all previous home medications Medications: Clindamycin [place] Transmitted to pharmacy 35 (Time Taken for discharge summary 35 minutes) Discharge Statement: "Patient was advised to return to the ER or call 911 if any headaches, dizziness, shortness of breath, chest pain, abdominal pain, bleeding, fevers, or worsening of medical condition. Patient was counseled about treatment plan, medications, possible side effects, patientverbalized understanding. All questions were answered to the best of my ability. This discharge took greater then 30 minutes in planning, reviewing documentation, counseling the patient, and discussing with other team members." ASSESSMENT ASSESSMENT Hospital Course Improved Assessment Sepsis secondary to severe cellulitis left lower extremity: Blood cultures Cellulitis left lower extremity: Zosyn clindamycin patient is allergic to vancomycin Peripheral arterial disease ruled out Acute hypotension secondary to sepsis: Levophed DVT ruled out Blood cultures neg History of asthma Morbid obesity BMI of 40.8 Elevated D-dimer 1.43 Date of Service: Aug 22, 2024 Billing Provider: ESHA GRAMAJO MD Common Visit Codes: 67586-SMI/OBS DISCH DAY >30min ESHA GRAMAJO MD Aug 22, 2024 11:49
== END 2024-08-22 19:59 | disposition home or self-care (01) | DRG 720 ==
LOC: EDBD 16:35 → ER 16:35 → OVERFLOW 19:37 → TELE 08-20 01:54 → TELE-EAST 08-21 17:13 → EAST 08-21 17:57
PROVIDERS: ADMIT Nurse Practitioner Family; ATTEND Family Medicine
DX: A41.9 Sepsis, unspecified organism (principal); I95.9 Hypotension, unspecified; L03.116 Cellulitis of left lower limb; E66.01 Morbid (severe) obesity due to excess calories; J45.909 Unspecified asthma, uncomplicated; Z68.41 Body mass index [BMI] 40.0-44.9, adult; Z88.1 Allergy status to other antibiotic agents; Z88.5 Allergy status to narcotic agent; Z79.899 Other long term (current) drug therapy
CPT/HCPCS: 36415; 80053; 81001; 82565; 83605; 84484; 85025; 85379; 85610; 85730; 86850; 86870; 86900; 86901; 87040; 87086; 93925; 93970; 96365; 96375; 99291; G0378; J1885; J2405; J2543; J3490

== ENCOUNTER 2024-08-24 19:36 | Emergency (ER) | payer MEDICAID ==
[~2024-08-24] VITALS: Ht 165.1 cm; Wt 120.0 kg
[~2024-08-24 19:36] MED LIST changes: +ACET-6; -ADAL40IN SC; +ALBU108A5; -CHOL20007 PO; +CLIN1CAP70 PO; -HYDR-4491 PO; +HYDR-4902 PO; -SULF500T2 PO
--- NOTE | 2024-08-24 19:55 | ED.PDOC ---
SOB-HPI HPI Comments 53y F who presents to the ED via EMS for chief complaint of shortness of breath. Pt states she has been having shortness of breath since earlier this afternoon. Pt states she called EMS to the scene and EMS states upon arrival to the ED, pt had noted increased work of breathing and noted low 02 saturation. EMS gave gave albuterol and Atrovent and pt 02 sat jannet of 90 to 93% with pt in no noted respiratory distress and brought to the ED. Pt in the ED, otherwise denies chest pain, fever, cough, chills, headache or dizziness. Pt otherwise states she was recently discharged from after being hospitalized for infection of left foot and given IV antibiotics and discharged on outpatient antibiotics. Pt otherwise denies any other symptoms at this time. Chief Complaint: Shortness of Breath Time Seen by MD: 19:51 Reviewed notes: Recreation Counselor Notes Information Source: Patient, Emergency Med Personnel Mode of Arrival: EMS Brought in by: EMS Severity: Mild Timing: Hours Duration: Since onset Context: At Rest, With Light Exertion PE Risk Factors: None History of: Asthma Prehospital treatment: Beta-Agonist Tx, Breathing Tx Modifying Factors: Inhaler Associated Signs and Symptoms: Wheeze Past Medical History PAST MEDICAL HISTORY: Asthma, HTN Surgical History: Appendectomy, Cholecystectomy TRIMMER SORTER History: No Pertinent TRIMMER SORTER History Family History Family History: Reviewed,noncontributory to illness Social History Smoker: Non-Smoker Alcohol: Denies ETOH Use Drugs: Denies Drug Use Lives In: Home Constitutional: denies: chills, diaphoresis, fatigue, fever, malaise, sweats, weakness, others EENTM: denies: blurred vision, double vision, ear bleeding, ear discharge, ear drainage, ear pain, ear ringing, eye pain, eye redness, hearing loss, mouth pain, mouth swelling, nasal discharge, nose bleeding, nose congestion, nose pain, photophobia, tearing, throat pain, throat swelling, voice changes, others Respiratory: reports: SOB at rest, shortness of breath, SOB with excertion; denies: cough, hemoptysis, orthopnea, stridor, wheezing, others Cardiovascular: denies: chest pain, dizzy spells, diaphoresis, Dyspnea on exertion, edema, irregular heart beat, left arm pain, lightheadedness, palpitations, PND, syncope, others Gastrointestinal: denies: abdomen distended, abdominal pain, blood streaked bowels, constipated, diarrhea, dysphagia, difficulty swallowing, hematemesis, melena, nausea, poor appetite, poor fluid intake, rectal bleeding, rectal pain, vomiting, others Genitourinary: denies: abnormal vagina bleeding, burning, dyspareunia, dysuria, flank pain, frequency, hematuria, incontinence, pain, , vagina discharge, urgency, others Neurological: denies: dizziness, fainting, headache, left sided numbness, left sided weakness, numbness, paresthesia, pre-existing deficit, right sided numbness, right sided weakness, seizure, speech problems, tingling, tremors, weakness, others Musculoskeletal: denies: back pain, gout, joint pain, joint swelling, muscle pain, muscle stiffness, neck pain, others Integumetry: denies: bruises, change in color, change in hair/nails, dryness, laceration, lesions, lumps, rash, wounds, others Allergic/Immunocompromised: denies: Difficulty Healing, Frequent Infections, Hives, Itching, others Hematologic/Lymphatic: denies: anemia, blood clots, easy bleeding, easy bruising, swollen glands, others Endocrine: denies: excessive hunger, excessive sweating, excessive thirst, excessive urination, flushing, intolerance to cold, intolerance to heat, unexplained weight gain, unexplained weight loss, others Psychiatric: denies: anxiety, bipolar disorder, depression, hopeless, panic disorder, schizophrenia, sleepless, suicidal, others All Other Systems: Reviewed and Negative Physical Exam General Appearance: Mild Distress HEENT: Normal ENT Inspection, Pharynx Normal, TMs Normal Neck: Full Range of Motion, Non-Tender, Normal, Normal Inspection Respiratory: Chest Non-Tender, No Accessory Muscle Use, Wheezing Cardiovascular: No Edema, No JVD, No Murmur, No Gallop, Normal Peripheral Pulses, Regular Rate/Rhythm Breast Exam: Deferred Gastrointestinal: No Organomegaly, Non Tender, No Pulsatile Mass, Normal Bowel Sounds, Soft Genitalia: Deferred Pelvic: Deferred Rectal: Deferred Extremities: No calf tenderness, Normal capillary refill, Normal inspection, Normal range of motion, Non-tender, No pedal edema Musculoskeletal : Apperance: Normal Neurologic: Alert, physics and astronomy professor II-XII nml as Tested, No Motor Deficits, Normal Affect, Normal Mood, No Sensory Deficits Cerebellar Function: Normal Reflexes: Normal Skin: Dry, Normal Color, Warm Lymphatic: No Adenopathy Was a procedure done? Was a procedure done?: No Differential Dx Differential Diagnosis: Bronchitis, CHF, COPD, Myocardial infarction, Pneumonia, Respiratory Distress, Pharyngitis, URI X-Ray, Labs, Meds, VS Vital Signs Date Time Temp Pulse Resp B/P (MAP) Pulse Ox O2 Delivery O2 Flow Rate FiO2 08/24/24 20:32 113 20 90 Room Air* 0 21 08/24/24 20:23 99.2 113 20 103/73 (83) 91 99.2 08/24/24 20:09 20 95 Room Air* 0 21 08/24/24 19:45 113 08/24/24 19:36 98.9 112 16 130/89 (103) 92 Lab Test 08/24/24 20:13 Range/Units White Blood Count 16.5 H 4.4-10.8 10^3/uL Red Blood Count 4.21 4.0-5.20 10^6/uL Hemoglobin 12.4 12.2-16.2 g/dL Hematocrit 37.6 36.0-46.0 % Mean Corpuscular Volume 89.4 80.0-100.0 fL Mean Corpuscular Hemoglobin 29.4 28.0-32.0 pg Mean Corpuscular Hemoglobin Concent 32.9 32.0-36.0 g/dL Red Cell Distribution Width 14.6 H 11.8-14.3 % Platelet Count 431 140-450 10^3/uL Mean Platelet Volume 7.6 6.9-10.8 fL Neutrophils (%) (Auto) 37.0-80.0 % Lymphocytes (%) (Auto) 10.0-50.0 % Monocytes (%) (Auto) 0.0-12.0 % Basophils (%) (Auto) 0.0-2.0 % Neutrophils # (Auto) 1.6-8.6 10 ^3/uL Lymphocytes # (Auto) 0.4-5.4 10 ^3/uL Monocytes # (Auto) 0-1.3 10 ^3/uL Differential Total Cells Counted 100.0 100 Neutrophils % (Manual) 78 37.0-80.0 Band Neutrophils % (Manual) 4 Lymphocytes % (Manual) 7 L 10.0-50.0 Monocytes % (Manual) 5 0-12 Eosinophils % (Manual) 1 0-7 Basophils % (Manual) 0 0.0-2.0 Metamyelocytes % (manual) 1 Myelocytes % (Manual) 2 Promyelocytes % (Manual) 0 Blast Cells % (Manual) 0 Reactive Lymphocytes 2 Platelet Estimate Adequate Large Platelets Few Stomatocytes Few Sodium Level 136 136-145 mmol/L Potassium Level 3.5 3.5-5.1 mmol/L Chloride Level 100 98-107 mmol/L Carbon Dioxide Level 29 20-31 mmol/L Anion Gap 7 5-15 Blood Urea Nitrogen 9 9-23 mg/dL Creatinine 0.80 # 0.550-1.02 mg/dL Glomerular Filtration Rate Calc 88 >90 mL/min BUN/Creatinine Ratio 11.3 10.0-20.0 Serum Glucose 141 H 74-106 mg/dL Calcium Level 9.2 8.7-10.4 mg/dL Current Medications Medications (Trade) Dose Ordered Sig/Marcel Route Start Time Stop Time Status Last Admin Methylprednisolone Sodium Succinate (Solu Medrol) 125 mg ONCE ONCE IV 08/24/24 19:45 08/24/24 19:46 DC 08/24/24 20:09 Ipratropium [place] (Atrovent Medneb) 1 mg ONCE ONCE [facility] 08/24/24 19:45 08/24/24 19:46 DC 08/24/24 20:08 Albuterol (Ventolin Medneb) 10 mg ONCE ONCE [facility] 08/24/24 19:45 08/24/24 19:46 DC 08/24/24 20:09 EXAM: XY CHEST PORTABLE IMPRESSION: No acute cardiopulmonary abnormality. THE PATIENT WAS GIVEN A CONTINUOUS BREATHING TREATMENT OF ALBUTEROL AND ATROVENT THE PATIENT WAS GIVEN SOLU-MEDROL 125 MG IV PUSH The CBC shows an elevated white blood cell count of 16.5 Rest of the CBC is within limits The chemistry is within normal limits This time, the patient was being discharged with a diagnosis of asthma exac erbation The patient return to the emergency department's condition worsens Time of 1ST Reevaluation: 20:20 Reevaluation 1ST: Unchanged Patient Education/Counseling: Diagnosis, Treatment, Prognosis, Need For Follow Up Family Education/Counseling: No Family Present Additional Information - I reviewed the following notes from patient's past medical encounters: - The following tests were ordered, and results were reviewed by me: (Labs, X- Ray, EKG): cbc , chest x-ray, bmp, orthostatics - Additional information was gathered from interviewing the following independent Historian: (Family, Other Providers, EMT): EMS - I reviewed and agreed with the following test results read by other provider: (X-ray, CT, US): radiologist - I discussed treatments and results with medical personnel and: (consultants, family): none Departure 1 Departure Time of Disposition: 21:13 Impression: Primary Impression: Asthma with acute exacerbation Qualified Codes: J45.901 - Unspecified asthma with (acute) exacerbation Disposition: HOME / SELF CARE / HOMELESS Condition: Fair e-Prescriptions Methylprednisolone (Medrol Dosepak) 4 Mg [place] 4 MG PO UD, #21 TAB UAD Prov: BLAYNE SALOMON MD 08/24/24 Discharged With: Self Critical Care Note Critical Care Time?: No Stability Stability form required: No Heart Score Heart Score: Heart Score Response (Comments) Value History Slightly Suspicious 0 EKG N/A 0 Age 45-64 1 Risk Factors 1 or 2 risk factors 1 Troponin Normal limit 0 Total 2 I personally scribed for BLAYNE SALOMON MD ([email or web address]) on 08/24/24 at 19:55. Electronically submitted by Julius Moss ([email or web address]). I personally scribed for BLAYNE SALOMON MD ([email or web address]) on 08/24/24 at 21:12. Electronically submitted by Julius Moss ([email or web address]). BLAYNE SALOMON MD Aug 24, 2024 19:55
[2024-08-24] MEDS: IPRATROPIUM BROM 0.5 MG/2.5ML INH SOL HHN ONE (20:08)
[2024-08-24] MEDS: methylPREDNISolone SOD SUCC 125 MG/2 ML VL IV ONE (20:09)
[2024-08-24] MEDS: ALBUTEROL SULF 2.5 MG/0.5ML(0.5%) NEB SOLN HHN ONE (20:09)
[2024-08-24 20:23] VITALS: BP 103/73; TEMP 99.2
[2024-08-24 20:26] LABS: Hematocrit 37.6 % (36.0-46.0); Hemoglobin 12.4 g/dL (12.2-16.2); Mean Corpuscular Hemoglobin 29.4 pg (28.0-32.0); Mean Corpuscular Hgb Conc. 32.9 g/dL (32.0-36.0); Mean Corpuscular Volume 89.4 fL (80.0-100.0); Platelet Count (auto) 431 10^3/uL (140-450); Red Blood Cells 4.21 10^6/uL (4.0-5.20); Red Cell Distribution Width 14.6 % (11.8-14.3); White Blood Cell 16.5 10^3/uL (4.4-10.8)
[2024-08-24 20:32] VITALS: PULSE 113; RESP 20; O2SAT 90
[2024-08-24 20:32] LABS: Basophils % (manual) 0 (0.0-2.0); Blast Cells 0; Promyelocytes % 0
[2024-08-24 20:33] LABS: Chloride 100 mmol/L (98-107); Potassium 3.5 mmol/L (3.5-5.1); Sodium 136 mmol/L (136-145)
[2024-08-24 20:34] LABS: Anion Gap 7 (5-15); Carbon Dioxide 29 mmol/L (20-31)
[2024-08-24 20:35] LABS: Calcium 9.2 mg/dL (8.7-10.4)
[2024-08-24 20:40] LABS: BUN/Creatinine Ratio 11.3 (10.0-20.0)
[2024-08-24 20:45] LABS: Blood Urea Nitrogen 9 mg/dL (9-23); Glucose 141 mg/dL (74-106)
[2024-08-24 20:50] LABS: Band Neutrophils % (manual) 4; Eosinophils % (manual) 1 (0-7); Lymphocytes % (manual) 7 (10.0-50.0); Metamyelocytes % 1; Monocytes % (manual) 5 (0-12); Myelocytes % 2; Platelet Estimate Adequate
[2024-08-24 20:51] LABS: Large Platelets FEW; Reactive Lymphocytes 2; Stomatocytes Few
--- NOTE | 2024-08-24 20:51 | DVH ---
EXAM: XY CHEST PORTABLE CLINICAL HISTORY: sob TECHNIQUE: Single AP view of the chest WID: COMPARISON: CHEST XRAY 1 VIEW on DOS: 08/14/20 FINDINGS: Lines and tubes: None Chest: The heart size and pulmonary vasculature is within normal limits. No pleural effusion, pneumothorax, or consolidation. The osseous structures are grossly intact. IMPRESSION: No acute cardiopulmonary abnormality.
[2024-08-24] MEDS ORDERED: METH4PAK PO (21:12)
--- NOTE | 2024-08-25 06:48 | ECG ---
[facility] Test Date: 2024-08-24 Test Time: 19:45:58 Pat Name: WILLIAM URIBE Department: er Room: Gender: F Follow Up Clerk: : 1970 Requested By: BLAYNE SALOMON Order Number: [id number] Reading MD: Carmine Mccain Measurements Intervals [place] Rate: 113 P: 71 ME: 132 QRS: 60 QRSD: 143 T: 44 QT: 314 QTc: 431 Interpretive Statements Sinus tachycardia Multiform ventricular premature complexes Nonspecific intraventricular conduction delay Electronically Signed On 08-25-2024 17:19:13 PST by Carmine Mccain Please click the below link to view image of tracing.
== END 2024-08-24 22:07 | disposition home or self-care (01) ==
LOC: ER 19:36 → EDBD 19:36 → ER 22:07
DX: J45.901 Unspecified asthma with (acute) exacerbation (principal); I10 Essential (primary) hypertension; Z90.49 Acquired absence of other specified parts of digestive tract; Z98.890 Other specified postprocedural states
CPT/HCPCS: 36415; 71045; 80048; 85007; 85027; 93005; 94640; 96374; 99285; J2919